=== PATIENT | male | born 1970 | race Hispanic/Latino ===

== ENCOUNTER 2018-06-10 20:58 | Emergency (ER) | payer BC ==
[~2018-06-10] VITALS: Ht 175.3 cm; Wt 81.6 kg
[~2018-06-10 20:58] MED LIST: AMLO5TAB7 PO; ASPI-667 PO; FENO160T PO; FENT1PAT75 TP; GABA300C10 PO; HYDR-3105 PO; HYDR-3470 PO; HYDR25TA PO; INSU100I18 SQ; INSU100I31 SQ; INSU100V13 SQ; LOPE1LIQ6 PO; LOSA1TAB22 PO; METR500T PO; OMEG1CAP2 PO; OMEP40CA6 PO; ROSU20TA PO
[2018-06-10 21:59] VITALS: BP 147/98
[2018-06-10 23:30] VITALS: BP 136/85
[2018-06-10] MEDS ORDERED: ATIVAN IM STA (23:32)
[2018-06-10] MEDS ORDERED: TORADOL ONE (23:35)
[2018-06-10] MEDS ORDERED: ATIVAN ONE (23:35)
--- NOTE | 2018-06-10 23:52 | ER.PDOC ---
General Chief Complaint: Headache Stated Complaint: HEADACHE,ELEVATED BLOOD PRESSURE Time seen by MD: 23:15 Source: patient History of Present Illness Initial Comments pT C/O OCCIPITAL FELDMAN AND NECK PAIN for 4 days not relieved by his home otc meds. He has occasional numbness/tinlging in right arm and right leg. He goes to pain management in [place] for chronic lumbar back pain with right leg tingling. Timing/Duration: other (4 days) Severity/Quality: moderate Prior Headaches/Recent Trauma: occasional headaches Associated Symptoms: denies symptoms Allergies: Coded Allergies: No Known Allergies (Unverified , 05/09/14) Home Meds Active Scripts Hydrocodone Bit/Acetaminophen (NORCO 10-325 TABLET) 10-325 T1 Ea Tab, 1 TAB PO Q6HR PRN for PAIN, #120 TAB Prov:JESUS TORRES DO 04/07/18 Reported Medications Fentanyl 25 Mcg/Hr (DURAGESIC 25 MCG/HR) 1 Each Patch.td72, 1 PATCH TP Q72H, # 10 PATCH 03/16/17 Hydrocodone Bit/Acetaminophen (NORCO 10-325) 1 Each Tablet, 1 TAB PO HS PRN for BACK PAIN, #60 TAB 03/16/17 Insulin Aspart (NOVOLOG) 100 Unit/1 Ml Insuln.pen, 0 SQ ACHS 03/16/17 Insulin Degludec (Tresiba Flextouch U-100) 100 Unit/Ml (3 Ml) Insuln.pen, 40 UNIT SQ HS 05/21/16 Omeprazole (OMEPRAZOLE) 40 Mg Capsule.dr, 1 CAP PO DAILY, #30 CAP 3 Refills 04/09/15 Aspirin (ASPIRIN) 81 Mg Tab.chew, 1 TAB PO DAILY, #90 TAB 3 Refills 04/09/15 Losartan/Hydrochlorothiazide (LOSARTAN-HCTZ 100-25 MG TAB) 1 Each Tablet, 1 TAB PO DAILY, #90 TAB 3 Refills 04/09/15 Amlodipine Besylate (AMLODIPINE BESYLATE) 5 Mg Tablet, 1 TAB PO DAILY, #90 TAB 3 Refills 04/09/15 Rosuvastatin 20MG (CRESTOR 20MG) 20 Mg Tablet, 1 TAB PO DAILY, #90 TAB 3 Refills 04/09/15 Fenofibrate (FENOFIBRATE) 160 Mg Tablet, 1 TAB PO DAILY, #90 TAB 3 Refills 04/09/15 [place]-3 Acid Ethyl Esters (LOVAZA) 1 Gm Capsule, 2 CAP PO BID, #360 CAP 3 Refills 04/09/15 Gabapentin (GABAPENTIN) 300 Mg Capsule, 1-2 CAP PO QID, #90 CAP 3 Refills 04/09/15 Past Medical History Medical History: diabetes, high cholesterol, hypertension Surgical History: cholecystectomy, other Social History Smoking: cigarettes, less than 1 pack/day Alcohol Use: none Drug Use: none Reviewed Nursing Reviewed: Vital Signs, Abn. Noted, Nursing Assessment Review of Systems Constitutional: denies no symptoms reported, denies see HPI, denies chills, denies diaphoresis, denies fever, denies malaise, denies weakness, denies other Eyes: denies no symptoms reported, denies see HPI, denies blindness, denies blurred vision, denies drainage, denies decreased acuity, denies foreign body sensation, denies inflammation, denies pain, denies photophobia, denies previous injury, denies shadows, denies tunnel vision, denies vision change, denies contact lenses, denies glasses, denies other Ears, Nose, Mouth, Throat: denies no symptoms reported, denies see HPI, denies ear pain, denies ear discharge, denies nose pain, denies nose discharge, denies epistaxis, denies mouth pain, denies mouth swelling, denies loose teeth, denies throat pain, denies throat swelling Respiratory: denies no symptoms reported, denies see HPI, denies cough, denies orthopnea, denies shortness of breath, denies stridor, denies wheezing, denies other Cardiovascular: denies no symptoms reported, denies see HPI, denies chest pain , denies edema, denies palpitations, denies syncope, denies other Gastrointestinal: denies no symptoms reported, denies see HPI, denies abdominal pain, denies constipation, denies diarrhea, denies nausea, denies vomiting, denies other Genitourinary: denies no symptoms reported, denies see HPI, denies discharge, denies dysuria, denies frequency, denies hematuria, denies pain, denies other Musculoskeletal: neck pain Skin: denies no symptoms reported, denies see HPI, denies change in color, denies change in hair/nails, denies dryness, denies lesions, denies lumps, denies rash, denies other All Other Systems: Reviewed and Negative Physical Exam General Appearance: No Apparent Distress, WD/WN Head/Eyes: eyes nml inspection, no facial swelling, no nystagmus, PERRL ENT: nml ENT inspection, pharynx nml Neck: nml inspection, Supple (tender spastic muscles bilaterally throughout C spine-headache pain reproduced by turning head from left to right and back) Cardiovascular: Normal Peripheral Pulses, Regular Rate, Rhythm, No Edema, No Gallop, No JVD, No Murmur Respiratory: chest non-tender, lungs clear, normal breath sounds, no respiratory distress, no accessory muscle use Gastrointestinal: Normal Bowel Sounds, No Organomegaly, No Pulsatile Mass, Non Tender, Soft Back: Normal Inspection, No CVA Tenderness, No Vertebral Tenderness Extremities: Normal Range of Motion, Non-Tender, Normal Inspection, No Pedal Edema, No Calf Tenderness, Normal Capillary Refill Psychiatric: Alert, Oriented x 3 Cranial Nerves: Normal Hearing, Normal Speech, PERRL Coordination/Gait: Normal Finger to Nose, Normal Gait Motor/Sensory: No Motor Deficit, No Sensory Deficit, No Pronator Drift, Negative Babinski's Sign Skin: Warm/Dry, Normal Color Lymphatic: No Adenopathy Results/Orders Results/Orders Administered Medications Medications (Trade) Dose Ordered Sig/Roselia Route PRN Reason Start Time Stop Time Status Last Admin Dose Admin Ketorolac Tromethamine (Toradol) 60 mg OT ONCE IM 06/11/18 00:00 06/11/18 00:01 06/10/18 23:40 Lorazepam (Ativan) 2 mg OT STAT IM 06/10/18 23:32 06/10/18 23:33 DC 06/10/18 23:40 Departure Time of Disposition: 23:49 Disposition: 01 HOME, SELF-CARE Impression: Primary Impression: Headache Additional Impression: Neck muscle spasm Condition: Stable Patient Instructions: Muscle Cramps, Muscle Strain Referrals: PCP,UNKNOWN (PCP) PRIMARY CARE PROVIDER Comments Naproxen 500 mg po bid prn pain #30 Take your tizanidine 1/2 am 1/2 noon and 1 at night See your pain management doctor in [facility] and tell them about your neck pain Duration or Time Spent with Pa: 20 SHARDA MICHEL MD Jun 10, 2018 23:53
--- NOTE | 2018-06-10 23:58 | PCM.EKG ---
[facility] Test Date: 2018-06-10 Test Time: 22:04:25 Pat Name: MEHDI DENA Department: Room: Gender: M Housing Specialist: DANNYABIODUN : 1970 Requested By: JESÚS DE LUNA Order Number: [id number] Reading MD: Jesús De Luna Measurements Intervals [place] Rate: 78 P: 60 [place]: 138 QRS: 11 QRSD: 80 T: -19 QT: 374 QTc: 426 Interpretive Statements Normal sinus rhythm Normal ECG No previous ECG available for comparison Electronically Signed On 06-11-2018 4:21:09 CDT by Jesús De Luna Please click the below link to view image of tracing.
[2018-06-11] MEDS ORDERED: TORADOL IM ONE
[2018-06-11 00:05] VITALS: BP 130/74
== END 2018-06-11 00:08 | disposition home or self-care (01) ==
LOC: ER 20:58
DX: R51 Headache (principal); M62.838 Other muscle spasm; E11.9 Type 2 diabetes mellitus without complications; E78.00 Pure hypercholesterolemia, unspecified; I10 Essential (primary) hypertension; F17.210 Nicotine dependence, cigarettes, uncomplicated; Z79.4 Long term (current) use of insulin; Z79.82 Long term (current) use of aspirin; Z90.49 Acquired absence of other specified parts of digestive tract; Z79.891 Long term (current) use of opiate analgesic; Z79.899 Other long term (current) drug therapy
CPT/HCPCS: 93005; 96372 ×2; 99284; J1885; J2060

== ENCOUNTER 2019-09-01 16:12 | Emergency (ER) | payer BC ==
[~2019-09-01] VITALS: Ht 175.3 cm; Wt 81.6 kg
[~2019-09-01 16:12] MED LIST changes: +AMLO5TAB10 PO; -AMLO5TAB7 PO; +OMEP40CA41 PO; -OMEP40CA6 PO; -ROSU20TA PO; +ROSU20TA2 PO
--- NOTE | 2019-09-01 16:30 | NUR ---
ARRIVAL/TRIAGE PT ARRIVED TO THE ER AMBULATORY WITH C/O RIGHT EYE PAIN. PT IN NO DISTRESS AND PLACED IN FASTPASS ROOM.
[2019-09-01 16:33] VITALS: BP 143/97
[2019-09-01 17:11] VITALS: BP 158/100
[2019-09-01] MEDS ORDERED: TETRACAINE 0.5% EYE DROPS ONE (17:14)
[2019-09-01] MEDS ORDERED: FUL-GLO OP ONE (17:14)
[2019-09-01] MEDS ORDERED: [UNRECOGNIZED DRUG - SUPPLY] OP ONE (17:16)
--- NOTE | 2019-09-01 17:54 | ER.PDOC ---
General Chief Complaint: Eye Problems Stated Complaint: EYE INJURY Time seen by MD: 18:00 Source: patient Exam Limitations: no limitations History of Present Illness Initial Comments SLEPT WITH CONTACTS IN Timing/Duration: this morning Associated Symptoms: pian, sensitivity to light, redness, eyelid swelling, for eign body sensation, blurred vision Location: right eye Severity: mild Apparent Inury: Yes Context: wearing contacts Allergies: Coded Allergies: No Known Allergies (Unverified , 05/09/14) Home Meds Active Scripts Hydrocodone Bit/Acetaminophen (NORCO 10-325 TABLET) 10-325 T1 Ea Tab, 1 TAB PO Q6HR PRN for PAIN, #120 TAB Prov:JESUS TORRES DO 04/07/18 Reported Medications Fentanyl 25 Mcg/Hr (DURAGESIC 25 MCG/HR) 1 Each Patch.td72, 1 PATCH TP Q72H, #10 PATCH 03/16/17 Hydrocodone Bit/Acetaminophen (NORCO 10-325) 1 Each Tablet, 1 TAB PO HS PRN for BACK PAIN, #60 TAB 03/16/17 Insulin Aspart (NOVOLOG) 100 Unit/1 Ml Insuln.pen, 0 SQ ACHS 03/16/17 Insulin Degludec (Tresiba Flextouch U-100) 100 Unit/Ml (3 Ml) Insuln.pen, 40 UNIT SQ HS 05/21/16 Omeprazole (OMEPRAZOLE) 40 Mg Capsule.dr, 1 CAP PO DAILY, #30 CAP 3 Refills 04/09/15 Aspirin (ASPIRIN) 81 Mg Tab.chew, 1 TAB PO DAILY, #90 TAB 3 Refills 04/09/15 Losartan/Hydrochlorothiazide (LOSARTAN-HCTZ 100-25 MG TAB) 1 Each Tablet, 1 TAB PO DAILY, #90 TAB 3 Refills 04/09/15 Amlodipine Besylate (AMLODIPINE BESYLATE) 5 Mg Tablet, 1 TAB PO DAILY, #90 TAB 3 Refills 04/09/15 Rosuvastatin 20MG (CRESTOR 20MG) 20 Mg Tablet, 1 TAB PO DAILY, #90 TAB 3 Refills 04/09/15 Fenofibrate (FENOFIBRATE) 160 Mg Tablet, 1 TAB PO DAILY, #90 TAB 3 Refills 04/09/15 [place]-3 Acid Ethyl Esters (LOVAZA) 1 Gm Capsule, 2 CAP PO BID, #360 CAP 3 Refills 8/4/15 Gabapentin (GABAPENTIN) 300 Mg Capsule, 1-2 CAP PO QID, #90 CAP 3 Refills 04/09/15 Past Medical History Medical History: diabetes, hypertension Surgical History: other Social History Alcohol Use: occassionally Drug Use: none Reviewed Nursing Reviewed: Vital Signs, Abn. Noted All Other Systems: Reviewed and Negative Physical Exam General Appearance: alert, no distress Visual Acuity: no globe trauma Eyelid: (R) edema, (R) erythema Conjunctiva/Sclera: (R) injected Corneas: exam w/flurescein (L) EOM's: intact, no nystagmus Pupils: PERRL, nml accommodation Head/ENT: nml inspection, pharynx nml Skin Exam: Normal Color, Warm/Dry Neck/Back: nml inspection, painless ROM Resp/CVS: no resp distress, lungs clear, heart sounds nml, reg. rate & rhythm Abdomen: non-tender, no organomegaly NEURO/PSYCH: oriented X3, mood/effect nml Results/Orders Results/Orders Orders - HALEY FAULKNER MD Tetracaine Hcl/Pf (Tetracaine 0.5% Eye D (09/01/19 17:14) Fluorescein Sodium (Ful-Zulma) (09/01/19 17:14) Sod Borate/Boric Ac/Water/Nacl (Advanced (09/01/19 17:16) Vital Signs Date Time Temp Pulse Resp B/P (MAP) Pulse Ox O2 Delivery O2 Flow Rate FiO2 09/01/19 17:11 108 158/100 (119) 09/01/19 16:33 97.7 102 18 143/97 (112) 99 Room Air 09/01/19 16:33 97.7 102 18 09/01/19 16:27 97.7 102 18 99 Course Sepsis Screening Results: Posi: POSITIVE SEPSIS RISK Duration or Total Time Spent w: 20 Vitals & review Data Vital Sign - Last 24 Hours 09/01/19 09/01/19 09/01/19 09/01/19 16:27 16:33 16:33 17:11 Temp 97.7 97.7 97.7 Pulse 102 102 102 108 Resp 18 18 18 B/P (MAP) 143/97 (112) 158/100 (119) Pulse Ox 99 99 O2 Delivery Room Air O2 Sat by Pulse Oximetry: 99 Departure Time of Disposition: 18:11 Disposition: 01 HOME, SELF-CARE Impression: Primary Impression: Disorder due to contact lens Condition: Improved Referrals: BECK SANTOS MD (PCP) PRIMARY CARE PROVIDER Duration or Time Spent with Pa: Joy M HALEY FAULKNER MD Sep 01, 2019 17:54
== END 2019-09-01 17:55 | disposition home or self-care (01) ==
LOC: ER 16:12
DX: H57.89 Other specified disorders of eye and adnexa (principal); I10 Essential (primary) hypertension; E11.9 Type 2 diabetes mellitus without complications; Z79.82 Long term (current) use of aspirin; Z79.4 Long term (current) use of insulin; Z79.899 Other long term (current) drug therapy
CPT/HCPCS: 99283

== ENCOUNTER → 2020-02-05 | Outpatient (CLI) | payer BC ==
--- NOTE | 2020-02-05 15:09 | DIREP ---
PROCEDURE:XRAY SPINE THORACIC 3 VWS COMPARISON:[facility], , XRAY CHEST 2 VWS, 02/08/2017, 04:26 PM. INDICATIONS:M54.5 LOW BACK PAIN FINDINGS: ALIGNMENT:Normal. VERTEBRAE:No compression fracture is seen. Minimal marginal osteophyte formation is noted in the mid and lower thoracic spine. DISK SPACES:Normal. OTHER:Normal. CONCLUSION: 1. No fracture or spondylolisthesis demonstrated. 2. Minimal thoracic spondylosis. Dictated by: Jacobo Malin M.D. on 02/05/2020 at 03:07 PM
--- NOTE | 2020-02-05 15:12 | DIREP ---
PROCEDURE:XRAY SPINE LUMBAR 2-3 VWS COMPARISON:None. INDICATIONS:M54.5 LOW BACK PAIN FINDINGS: ALIGNMENT:Normal. VERTEBRAE:No fracture is seen. Mild anterior and lateral spondylosis is noted at L2/3, L3/4, and L4/5 levels. DISK SPACES:Normal. SPONDYLOLISTHESIS:None. SACROILIAC JOINTS:Normal. OTHER:Normal. CONCLUSION: 1. No fracture or spondylolisthesis demonstrated. 2. Mild marginal osteophyte formation demonstrated at the L2/3, L3/4, and L4/5 levels. Dictated by: Jacobo Malin M.D. on 02/05/2020 at 03:08 PM
--- NOTE | 2020-02-05 15:15 | DIREP ---
PROCEDURE:XRAY HIP MIN 2VW-RT COMPARISON:None. INDICATIONS:M25.559 PAIN IN HIP FINDINGS: BONES:Normal. JOINTS:Mild sclerosis of the acetabulum is noted. No deformity of the femoral head is seen. SOFT TISSUES:Normal. OTHER:No additional findings. CONCLUSION: 1. Minimal osteoarthritic changes of the right hip; no fracture demonstrated. Dictated by: Jacobo Malin M.D. on 02/05/2020 at 03:10 PM
--- NOTE | 2020-02-05 15:29 | DIREP ---
PROCEDURE:XRAY HIP MIN 2VW-LT COMPARISON:[facility], , XRAY HIP MIN 2VW-LT, 03/16/2017, 10:36 AM. INDICATIONS:M25.559 PAIN IN HIP FINDINGS: BONES:Normal. JOINTS:Normal. SOFT TISSUES:Normal. OTHER:No additional findings. CONCLUSION:Normal examination. Dictated by: Austyn Rodriguez III, MD on 02/05/2020 at 02:24 PM
== END | disposition home or self-care (01) ==
LOC: LAB 13:42
PROVIDERS: ATTEND Internal Medicine
DX: M47.814 Spondylosis without myelopathy or radiculopathy, thoracic region (principal); E11.9 Type 2 diabetes mellitus without complications; M25.559 Pain in unspecified hip; M54.5 Low back pain; M06.4 Inflammatory polyarthropathy; M81.0 Age-related osteoporosis without current pathological fracture; M25.78 Osteophyte, vertebrae
CPT/HCPCS: 36415; 72072; 72100; 73502; 81374; 83036; 84550; 85651; 86200; 86431

== ENCOUNTER → 2020-12-06 | Outpatient (CLI) | payer BC ==
[~2020-12-06] MED LIST changes: +AMLO-169 PO; -AMLO5TAB10 PO
--- NOTE | 2020-12-06 11:04 | DIREP ---
PROCEDURE:XRAY KNEE 2 VWS-LT COMPARISON:None. INDICATIONS:PAIN IN LEFT KNEE FINDINGS: BONES:Normal. JOINTS:Normal. SOFT TISSUES:Normal. OTHER:No additional findings. CONCLUSION: 1. Normal study Dictated by: Raimundo Rodriguez Jr. on 12/06/2020 at 10:56 AM
--- NOTE | 2020-12-06 11:06 | DIREP ---
PROCEDURE:XRAY KNEE 2 VWS-RT COMPARISON:None. INDICATIONS:PAIN IN RIGHT KNEE FINDINGS: BONES:Normal. JOINTS:Normal. SOFT TISSUES:Normal. OTHER:No additional findings. CONCLUSION: 1. Normal study Dictated by: Raimundo Rodriguez Jr. on 12/06/2020 at 11:03 AM
== END | disposition home or self-care (01) ==
LOC: RAD 10:21
PROVIDERS: ATTEND Internal Medicine
DX: M25.561 Pain in right knee (principal); M25.562 Pain in left knee
CPT/HCPCS: 73560

== ENCOUNTER → 2021-01-03 | Outpatient (CLI) | payer BC ==
--- NOTE | 2021-01-03 10:56 | DIREP ---
PROCEDURE:XRAY FOOT MIN 3 VWS-LT COMPARISON:None. INDICATIONS:PAIN ON TOP OF MID FOOT, WORSE WITH WALKING FINDINGS: BONES:No fracture. JOINTS:Osteophyte formation at the superior margin of the 1st tarsometatarsal joint. No significant joint space narrowing. No joint subluxation or dislocation. SOFT TISSUES:Normal. OTHER:No additional findings. CONCLUSION: 1. Degenerative marginal osteophyte at the left 1st TMT joint, without joint space narrowing. 2. No acute bony injury in the left foot. Dictated by: Sukhwinder Burch M.D. on 01/03/2021 at 10:53 AM
--- NOTE | 2021-01-03 11:18 | DIREP ---
PROCEDURE:C-Spine 4 views (AP/lateral/swimmer's/dens) TECHNIQUE:AP, lateral, swimmer's, and dens views of the cervical spine are provided. The cervicothoracic junction is not well demonstrated on the swimmer's or lateral view. COMPARISON:None. INDICATIONS:CERVICALGIA, ACUTE MIDLINE NECK PAIN AND HEADACHE FINDINGS: ALIGNMENT:Normal. VERTEBRAE:No fracture is seen in the visualized C-spine. DISK SPACES:Mm C5-6 and C6-7 disc. Prominent spondylotic osteophytes at the anterior margins of the C4-5 through C6-7 discs. CERVICAL RIBS:None. OTHER:Normal. CONCLUSION: The cervicothoracic junction is not well demonstrated on the swimmer's or lateral view. Degenerative spondylosis of the C-spine with no evidence of acute bony trauma. Dictated by: Sukhwinder Burch M.D. on 01/03/2021 at 11:12 AM
== END | disposition home or self-care (01) ==
LOC: RAD 10:05
PROVIDERS: ATTEND Internal Medicine
DX: M47.812 Spondylosis without myelopathy or radiculopathy, cervical region (principal); M25.78 Osteophyte, vertebrae; M25.775 Osteophyte, left foot; M19.072 Primary osteoarthritis, left ankle and foot; M54.2 Cervicalgia; R51.9 Headache, unspecified
CPT/HCPCS: 72040; 73630-LT

== ENCOUNTER 2021-03-19 06:06 | Day surgery (SDC) | payer BC ==
[~2021-03-19] VITALS: Ht 177.8 cm; Wt 86.2 kg
[~2021-03-19 06:06] MED LIST changes: +ALPR1TAB2 PO; +CETI10CA11 PO; +CITA20TA9 PO; +CRESTOR PO ONE; +EZET10TA20 PO; +HEPARIN ONE; +HUMALOG ONE; +HYDR-3101 PO; +INSU100V35 INJ; +LANTUS SQ ONE; +LOFIBRA PO ONE; +LYRICA ONE; +MAGN400C PO; +NS 1000ML 2,000 ML ONE; +NS 100ML 100 ML IV ONE; -OMEP40CA41 PO; +OMEP40CA8 PO; +PLAVIX ONE; +ROCEPHIN ONE; +SEMA1PEN3 INJ; +SEROQUEL ONE; +TEST200V4 IM; +TIZA4CAP PO; +ZOLOFT ONE
[2021-03-19 06:23] VITALS: BP 124/80
[2021-03-19] MEDS ORDERED: VERSED ONE (07:42)
[2021-03-19] MEDS ORDERED: SUBLIMAZE ONE (07:42)
[2021-03-19] MEDS ORDERED: DEPO-MEDROL ONE (08:37)
[2021-03-19 08:54] VITALS: BP 142/85
--- NOTE | 2021-03-19 08:57 | PRM.OPH ---
OPERATIVE REPORT OPERATIVE REPORT DATE OF SERVICE: 03/19/2021 CHIEF COMPLAINT: Arm pain PRE-OPERATIVE DIAGNOSIS: Radiculopathy, Cervical, M54.12 POST-OPERATIVE DIAGNOSIS: Radiculopathy, Cervical, M54.12 PROCEDURE PERFORMED: Cervical epidural steroid injection, CPT 69047, [id number] DESCRIPTION: After explaining the risks, benefits, and complications to the epidural steriod injection, the patient was placed in the prone position. The procedure was conducted under fluoroscopic guidance. The procedure was also conducted under monitored anesthesia care. Per aseptic technique, prepped neck with chlorh exidine. Wiped and draped the neck. Using an 18-gauge Tuohy needle at the midline C7-T1 vertebral level, noted loss of resistance at 8 cm. Negative CSF, negative paresthesia, and negative blood noted. Injected 1 cc Omnipaque 180 to confirm the needles was in Epidural space and there was not intravascular or interspinal flow. Injected 80 mg of Depomedrol diluted in 3 cc of normal saline. Needle was removed intact. Total fluoroscopy time 24 seconds. The patient tolerated the procedure well. Patient was taken back to pre-op room and monitored for 15 minutes with no complications. The patient was then discharged to home in satisfactory condition. EMANUEL LIMON MD Mar 19, 2021 08:57
[2021-03-19 09:15] VITALS: BP 129/81
== END 2021-03-19 09:20 | disposition home or self-care (01) ==
LOC: SDC 06:06
PROVIDERS: ATTEND Anesthesiology
DX: M54.12 Radiculopathy, cervical region (principal); G89.4 Chronic pain syndrome; M54.16 Radiculopathy, lumbar region; E11.44 Type 2 diabetes mellitus with diabetic amyotrophy; Z90.49 Acquired absence of other specified parts of digestive tract; Z98.890 Other specified postprocedural states; Z79.82 Long term (current) use of aspirin; Z79.4 Long term (current) use of insulin; Z79.899 Other long term (current) drug therapy
CPT/HCPCS: 62321; 82948; 99152; J0696; J1644; J1815 ×2; J2250; J3010; J7030; Q9965; 77003

== ENCOUNTER → 2021-04-11 | Outpatient (CLI) | payer BC ==
[~2021-04-11] MED LIST changes: -CRESTOR PO ONE; -HEPARIN ONE; -HUMALOG ONE; -LANTUS SQ ONE; -LOFIBRA PO ONE; -LYRICA ONE; -NS 1000ML 2,000 ML ONE; -NS 100ML 100 ML IV ONE; -PLAVIX ONE; -ROCEPHIN ONE; -SEROQUEL ONE; -ZOLOFT ONE
== END | disposition home or self-care (01) ==
LOC: NPLAB 11:31
PROVIDERS: ATTEND Internal Medicine
DX: Z20.822 Contact with and (suspected) exposure to COVID-19 (principal); B34.9 Viral infection, unspecified
CPT/HCPCS: 87426